=== PATIENT | female | born 1975 | race Hispanic/Latino ===

== ENCOUNTER → 2022-04-18 | Outpatient (CLI) | payer OTHER | END | disposition home or self-care (01) | LOC: RAH 12:34 | PROVIDERS: ATTEND Family Medicine | DX: M54.2 Cervicalgia (principal); M54.9 Dorsalgia, unspecified; M50.223 Other cervical disc displacement at C6-C7 level; M51.24 Other intervertebral disc displacement, thoracic region | CPT/HCPCS: 72141; 72146 ==